=== PATIENT | male | born 1970 | race Caucasian/White ===

== ENCOUNTER → 2018-11-17 | Day surgery (SDC) | payer MEDICARE, OTHER ==
[~2018-11-17] MED LIST: ACYCLOVIR 200200 MG PO; ASPIRIN81 M2 PO; B COMPLEX1 EACH PO; BACTRIM DS TAB1 EACH PO; CALCIUM 600 +1 EAC1 PO; EFFEXOR XR75 MG PO; FISH OIL 1,2001 EAC3 PO; METHOCARBAMOL750 MG PO; NEURONTIN 300300 M1 PO; OXYCODONE HCL10 MG PO; OXYCONTIN60 MG PO; PERCOCET PO; SYMBICORT160 MCG/4. INH; VITAMIN C500 M1 PO; VITAMIN D2000 UNIT PO; XARELTO10 MG PO
[2018-11-17 07:58] LABS: HEMATOCRIT 37.2 % (42.0-52.0); HEMOGLOBIN 12.5 gm/dL (14.0-18.0); MCH 33.4 pg (26.0-34.0); MCHC 33.7 g/dL (28.0-37.0); MCV 99.3 fL (80.0-100.0); MPV 7.6 fl. (7.2-11.1); RBC 3.75 mil/uL (4.50-6.00); RDW-CV 15.1 % (10.5-14.5); WBC 4.7 thou/uL (4.0-11.0)
[2018-11-17 08:08] LABS: CALCIUM 9.5 mg/dL (8.5-10.1); CREATININE 0.9 mg/dL (0.6-1.3); POTASSIUM 4.2 mmol/L (3.5-5.1)
[2018-11-17 08:13] LABS: ALBUMIN 3.6 g/dL (3.4-5.0); TOTAL BILIRUBIN 0.2 mg/dL (<0.1-1.0)
--- NOTE | 2018-11-17 10:36 | EKG ---
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1970 Requested By: Anjel Barnes Order Number: [id number] Agnieszka MD: Russel Jim Measurements Intervals [place] Rate: 70 P: 11 DC: 180 QRS: -31 QRSD: 88 T: 27 QT: 397 QTc: 429 Interpretive Statements Sinus rhythm Left axis deviation Low voltage, precordial leads Abnormal R-wave progression, late transition No previous ECG available for comparison Electronically Signed On 11-17-2018 10:36:07 CDT by Rsusel Jim [email or web address] <ELECTRONICALLY SIGNED> By: Russel Jim MD, [facility] 11/17/18 1036 0803 2 Russel Jim MD, FACC /EPI
--- NOTE | 2018-11-23 09:01 | OP ---
[address] [address] OPERATIVE REPORT Name: ADELFO CHENEY Room: [facility] M..#: [id number] Admission: 11/17/18 Attend Phys: Anjel Barnes II Discharge: Date of : 72 Report #: [id number] THIS REPORT FOR: //name// CC: NO MARGARET Barnes DATE OF SERVICE: 11/17/2018 PREOPERATIVE DIAGNOSIS: Right knee anterior cruciate ligament tear. POSTOPERATIVE DIAGNOSES: 1. Right knee anterior cruciate ligament tear. 2. Medial meniscus tear. 3. Grade 3 chondromalacia, patellofemoral groove. PROCEDURE PERFORMED: 1. Right knee arthroscopic surgery with ACL reconstruction with allograft. 2. Abrasion chondroplasty of the patellofemoral groove down to bleeding bone. 3. Partial medial meniscectomy. SURGEON: Anjel Barnes II, DO DISPENSING OPTICIAN: HEATH Guerin ANESTHESIA: Per operative record. ESTIMATED BLOOD LOSS: Minimal. ANTIBIOTICS: Per operative record. DRAINS: None. COMPLICATIONS: None. CONDITION: The patient stable to recovery room. OPERATIVE PROCEDURE: The patient was taken to the operative suite, placed supine on the operating table and given appropriate anesthesia. The patient's affected lower extremity was sterilely prepped and draped and a well-padded knee arthroscopic nails was applied. Surgery began by midline portal incision. The arthroscope was advanced in the joint. There was shown to be grade 3 chondromalacia to the patellofemoral groove utilizing the shaver and arthroscopic ablation wand. An abrasion chondroplasty was performed on the bleeding bone and then smoothed utilizing Coblation wand in appropriate fashion. The medial meniscus was probed and shown to have a tear of the medial and posterior margin extending around to the posterior aspect. Partial medial [address] [address] OPERATIVE REPORT Name: ADELFO CHENEY Room: [facility] PatriciaNancy#: [id number] Admission: 11/17/18 Attend Phys: Anjel Barnes II Discharge: Date of : 72 Report #: [id number] meniscectomy was then performed utilizing baskets and shaver to resect the torn flap along the medial meniscus and then smoothed utilizing Coblation wand in appropriate fashion. Lateral meniscus was probed and found to be intact. There was also found to be an ACL tear from the femoral and tibial attachments. Allograft was thawed and prepared. It was stretched and sized in appropriate fashion. The tibial tunnel was then prepared with the guide pin and reamed in appropriate fashion. Over the top, guide was then placed along the posterior aspect of the femoral tunnel and reamed retrograde and a guide pin was then applied. It was then reamed to the appropriate depth. The graft was then placed over the Endobutton and transferred up into the knee and secured proximally. It was then tensioned in situ and secured distally with a tibial screw. This was probed and found to be intact. Final images were obtained. However, the camera recording system did not capture these images. Final irrigation was performed. The knee was then drained of arthroscopic fluid, closed with 4-0 nylon in simple fashion. Dermabond and sterile dressing applied. The patient transported to the recovery room in stable condition. Counts were correct throughout the procedure. <ELECTRONICALLY SIGNED> By: Anjel Barnes II, DO 11/23/18 0901 [id number] Barnes II DO /nt
== END | disposition home or self-care (01) ==
LOC: M.SUR 07:15
PROVIDERS: Orthopaedic Surgery
DX: S83.511A Sprain of anterior cruciate ligament of right knee, initial encounter (principal); S83.241A Other tear of medial meniscus, current injury, right knee, initial encounter; M22.41 Chondromalacia patellae, right knee; X58.XXXA Exposure to other specified factors, initial encounter; Y93.89 Activity, other specified; Y92.89 Other specified places as the place of occurrence of the external cause; Y99.8 Other external cause status; Z79.82 Long term (current) use of aspirin; Z79.899 Other long term (current) drug therapy; Z79.891 Long term (current) use of opiate analgesic; Z98.890 Other specified postprocedural states